=== PATIENT | female | born 1995 | race Caucasian/White ===

== ENCOUNTER 2018-04-24 23:10 | Inpatient (IN) | payer OTHER ==
[~2018-04-24] VITALS: Ht 154.9 cm; Wt 66.7 kg
[2018-04-25 00:25] LABS: BASOPHIL % 0.4 % (0-2); CALCIUM 8.2 mg/dL (8.5-10.1); CARBON DIOXIDE 29.7 mmol/L (21-32); CHLORIDE SERUM 107 mmol/L (98-107); CREATININE SERUM 0.7 mg/dL (0.6-1.0); GFR1 > 60 mL/min; GLUCOSE SERUM 99 mg/dL (74-106); PLATELET COUNT 303 x10^3mcL (130-400); POTASSIUM SERUM 3.8 mmol/L (3.5-5.1); RED CELL DISTRIBUTION WIDTH 12.3 % (11.5-14.5); SODIUM SERUM 140 mmol/L (136-145)
[2018-04-25 00:31] LABS: ALBUMIN 3.5 g/dL (3.4-5.0); ALKALINE PHOSPHATASE 97 U/L (46-116); ALT/SGPT 46 U/L (14-59); AMYLASE 83 U/L (25-115); AST/SGOT 65 U/L (15-37); BILIRUBIN TOTAL 0.2 mg/dL (0.20-1.00); LIPASE 210 IU/L (73-393); TOTAL PROTEIN, SERUM 6.8 g/dL (6.4-8.2)
[2018-04-25 03:54] VITALS: BP 116/94
[2018-04-25 04:09] LABS: CHOLESTEROL/HDL RATIO 2.5; MAGNESIUM 2.1 mg/dL (1.8-2.4); PHOSPHOROUS 3.5 mg/dL (2.5-4.9)
[2018-04-25 04:12] LABS: T3 TOTAL 1.42 ng/mL
[2018-04-25 04:42] LABS: FREE T4 1.22 ng/dL (0.76-1.46); FREE THYROXINE INDEX 3.8 ug/dL (1.4-4.5); T4(THYROXINE) 10.5 ug/dL (4.7-13.3)
[2018-04-25 08:41] VITALS: BP 107/65
[2018-04-25 08:57] LABS: microscopic required? NO
[2018-04-25 10:05] LABS: AMPHETAMINE QUAL UR NONE DETECTED (NEG <=1000)
[2018-04-25 11:15] LABS: urine erythrocyte NEGATIVE (NEGATIVE)
[2018-04-25 17:25] VITALS: BP 118/67
[2018-04-25 20:37] VITALS: BP 113/70
[2018-04-26 05:34] VITALS: BP 104/67
[2018-04-26 06:30] LABS: CALCIUM 8.4 mg/dL (8.5-10.1); CARBON DIOXIDE 28.1 mmol/L (21-32); CHLORIDE SERUM 109 mmol/L (98-107); CREATININE SERUM 0.7 mg/dL (0.6-1.0); GFR1 > 60 mL/min; GLUCOSE SERUM 94 mg/dL (74-106); MAGNESIUM 2.1 mg/dL (1.8-2.4); PHOSPHOROUS 2.8 mg/dL (2.5-4.9); POTASSIUM SERUM 4.2 mmol/L (3.5-5.1); SODIUM SERUM 145 mmol/L (136-145)
[2018-04-26 06:58] LABS: BASOPHIL % 0.2 % (0-2); PLATELET COUNT 280 x10^3mcL (130-400); RED CELL DISTRIBUTION WIDTH 12.9 % (11.5-14.5)
[2018-04-26 07:15] LABS: BILIRUBIN DIRECT 1.07 mg/dL (0.0-0.2); BILIRUBIN TOTAL 1.7 mg/dL (0.20-1.00)
[2018-04-26 07:19] LABS: ALBUMIN 3.1 g/dL (3.4-5.0); TOTAL PROTEIN, SERUM 6.1 g/dL (6.4-8.2)
[2018-04-26 08:38] VITALS: BP 125/80
[2018-04-26 13:10] VITALS: BP 117/69
[2018-04-26 16:36] VITALS: BP 114/81
[2018-04-26 20:51] VITALS: BP 116/68
[2018-04-27 06:00] VITALS: BP 112/72
[2018-04-27 06:39] LABS: ALKALINE PHOSPHATASE 182 U/L (46-116); ALT/SGPT 777 U/L (14-59); AST/SGOT 229 U/L (15-37); BILIRUBIN DIRECT 0.22 mg/dL (0.0-0.2); BILIRUBIN TOTAL 0.48 mg/dL (0.20-1.00); CALCIUM 8.4 mg/dL (8.5-10.1); CARBON DIOXIDE 31.5 mmol/L (21-32); CHLORIDE SERUM 109 mmol/L (98-107); CREATININE SERUM 0.6 mg/dL (0.6-1.0); GFR1 > 60 mL/min; GLUCOSE SERUM 83 mg/dL (74-106); MAGNESIUM 1.8 mg/dL (1.8-2.4); PHOSPHOROUS 2.9 mg/dL (2.5-4.9); POTASSIUM SERUM 3.5 mmol/L (3.5-5.1); SODIUM SERUM 146 mmol/L (136-145); TOTAL PROTEIN, SERUM 6.4 g/dL (6.4-8.2)
[2018-04-27 06:40] LABS: ALBUMIN 3.1 g/dL (3.4-5.0)
[2018-04-27 06:47] LABS: BASOPHIL % 0.2 % (0-2); PLATELET COUNT 280 x10^3mcL (130-400); RED CELL DISTRIBUTION WIDTH 12.9 % (11.5-14.5)
[2018-04-27 08:09] VITALS: BP 118/84
[2018-04-27] MEDS ORDERED: APAP/HYDROCODON1 T13 PO (15:38)
[2018-04-27] MEDS ORDERED: COL100 PO (15:39)
[2018-04-27] MEDS ORDERED: ZOFI PO (15:39)
[2018-04-27 16:13] VITALS: BP 118/84
== END 2018-04-27 16:52 | disposition home or self-care (01) | DRG 418 ==
LOC: ED 23:10 → DU 04-25 02:57 → MU 04-25 02:57 → DU 04-25 03:38 → MU 04-26 06:39
PROVIDERS: Emergency Medicine; Family Medicine; Student in an Organized Health Care Education/Training Program; Surgery
PROC: 0FT44ZZ Resection of Gallbladder, Percutaneous Endoscopic Approach (ICD-10-PCS; principal; 2018-04-25 09:00)
DX: K80.70 Calculus of gallbladder and bile duct without cholecystitis without obstruction (principal); E44.1 Mild protein-calorie malnutrition; E83.51 Hypocalcemia; R74.0 Nonspecific elevation of levels of transaminase and lactic acid dehydrogenase [LDH]; Z68.27 Body mass index [BMI] 27.0-27.9, adult
CPT/HCPCS: 83880; 84439; C9113; J1170; J2405; J2543; J2704; J2710; J3010; J3490; J7030; J7120; Q0092

== ENCOUNTER 2018-05-08 10:31 | Emergency (ER) | payer OTHER ==
[~2018-05-08] VITALS: Ht 154.9 cm; Wt 65.5 kg
[~2018-05-08 10:31] MED LIST: APAP/HYDROCODON1 T13 PO; COL100 PO; ZOFI PO
[2018-05-08 10:52] VITALS: Ht 154.9 cm; Wt 65.5 kg
[2018-05-08 12:55] VITALS: BP 128/75
== END 2018-05-08 12:55 | disposition home or self-care (01) ==
LOC: ED 10:31
DX: Z48.02 Encounter for removal of sutures (principal); Z90.49 Acquired absence of other specified parts of digestive tract